=== PATIENT | female | born 2000 | race Hispanic/Latino ===

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

== ENCOUNTER 2022-09-07 10:21 | Emergency (ER) | payer MEDICAID ==
[~2022-09-07] VITALS: Ht 149.9 cm; Wt 72.6 kg
[2022-09-07] MEDS ORDERED: BENZ200C53 PO (13:15)
[2022-09-07 13:24] VITALS: BP 123/69
== END 2022-09-07 13:28 | disposition home or self-care (01) ==
LOC: EDH 10:21
DX: U07.1 COVID-19 (principal); Z90.49 Acquired absence of other specified parts of digestive tract
CPT/HCPCS: 71046; 81025